=== PATIENT | female | born 1975 | race American Indian/Alaskan Native ===

== ENCOUNTER 2018-11-29 19:55 | Emergency (ER) | payer OTHER ==
[2018-11-29 20:57] VITALS: BP 168/93
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
== END 2018-11-30 01:15 | disposition home or self-care (01) ==
LOC: ED 19:55
DX: S16.1XXA Strain of muscle, fascia and tendon at neck level, initial encounter (principal); M25.512 Pain in left shoulder; M54.5 Low back pain; V49.49XA Driver injured in collision with other motor vehicles in traffic accident, initial encounter; Y93.89 Activity, other specified; Y92.89 Other specified places as the place of occurrence of the external cause; Y99.8 Other external cause status
CPT/HCPCS: 72100

== ENCOUNTER 2018-12-21 22:06 | Emergency (ER) | payer OTHER ==
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
[2018-12-21] MEDS ORDERED: DILAUDID IV ONE (22:51)
[2018-12-21] MEDS ORDERED: DILAUDID ONE (22:52)
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
[2018-12-22 01:34] VITALS: BP 137/69
== END 2018-12-22 01:05 | disposition home or self-care (01) ==
LOC: ED 22:06
DX: S13.9XXA Sprain of joints and ligaments of unspecified parts of neck, initial encounter (principal); S39.012A Strain of muscle, fascia and tendon of lower back, initial encounter; S00.03XA Contusion of scalp, initial encounter; M54.6 Pain in thoracic spine; Z90.49 Acquired absence of other specified parts of digestive tract; V49.49XA Driver injured in collision with other motor vehicles in traffic accident, initial encounter; Y93.89 Activity, other specified; Y92.410 Unspecified street and highway as the place of occurrence of the external cause; Y99.8 Other external cause status
CPT/HCPCS: 36415; 70450; 72125; 72128; 72131; 84703; 96374; 99284; J1170

== ENCOUNTER 2021-03-28 16:45 | Emergency (ER) | payer SELFPAY ==
[2021-03-28 17:49] VITALS: BP 172/99
== END 2021-03-28 21:00 | disposition left against medical advice (07) ==
LOC: ED 16:45
DX: I10 Essential (primary) hypertension (principal); Z53.21 Procedure and treatment not carried out due to patient leaving prior to being seen by health care provider